=== PATIENT | male | born 1995 | race Caucasian/White ===

== ENCOUNTER 2025-03-13 04:19 | Emergency (ER) | payer OTHER ==
[~2025-03-13] VITALS: Ht 172.7 cm; Wt 77.1 kg
[2025-03-13] MEDS ORDERED: HYDROCODONE/APAP 5/325MG TABLET ONE (04:33)
[2025-03-13] MEDS: IV NS 0.9% 1,000 ML BAG IV ONE (04:34)
[2025-03-13] MEDS: HYDROCODONE/APAP 5/325MG TABLET PO ONE (04:34)
[2025-03-13 04:47] LABS: PLATELET COUNT (AUTO) 267 K/uL (150-450); RED BLOOD CELL COUNT(AUTO) 5.17 MIL/uL (4.5-6.0); RED CELL DISTRIBUTION WIDTH 13.3 % (11.5-15.0); WHITE BLOOD COUNT (AUTO) 7.5 K/uL (4.3-11.0)
[2025-03-13 04:56] LABS: CALCIUM, SERUM 8.9 mg/dL (8.5-10.1); CREATININE 1.5 mg/dL (0.6-1.3); SODIUM SERUM 139 mmol/L (136-145); UREA NITROGEN, BLOOD 13 mg/dL (7-18)
[2025-03-13 05:01] LABS: INR 1.09 (0.91-1.10)
[2025-03-13 05:02] LABS: ASPARTATE AMINOTRANSFERASE 18 U/L (15-37); TOTAL PROTEIN, SERUM 7.5 g/dL (6.4-8.2)
[2025-03-13 07:04] VITALS: BP 121/84; TEMP 97.9; O2SAT 98
== END 2025-03-13 07:04 | disposition home or self-care (01) ==
LOC: ER 04:24
DX: R55 Syncope and collapse (principal); E86.0 Dehydration; M25.531 Pain in right wrist; Z60.2 Problems related to living alone; W01.0XXA Fall on same level from slipping, tripping and stumbling without subsequent striking against object, initial encounter; Y93.89 Activity, other specified; Y92.89 Other specified places as the place of occurrence of the external cause; Y99.9 Unspecified external cause status
CPT/HCPCS: 99285; 96360; 70450; 71045; 93005; 73110; 85025; 80048; 80076; 36415; 84484; 85730; 82962; J7030